=== PATIENT | female | born 1975 | race American Indian/Alaskan Native ===

== ENCOUNTER 2021-04-19 15:02 | Emergency (ER) | payer BC ==
[2021-04-19] MEDS ORDERED: ACETAMINOPHEN 500 MG TAB PO ONE (16:51)
[2021-04-19] MEDS ORDERED: SODIUM CHLORIDE 0.9% 1000 ML 1,000 ML IV ONE (16:51)
--- NOTE | 2021-04-19 16:54 | Event Note ---
Date: 04/19/21 medical screening exam Large left gluteal abscess not low grade fever states not labs, ct, tylenol reassess protecting airway gcs 15 non focal motor exam chaperoned by TRE Conway Vital Signs 04/19/21 16:48 Temperature 100.1 F H Pulse Rate 110 H Respiratory 16 Rate Blood Pressure 146/84 [Left] O2 Sat by Pulse 100 Oximetry
[2021-04-19 17:58] LABS: Basophils % (Auto) 0.2 % (0.0-1.8); Eosinophils # (Auto) 0.1 K/mm3 (0.0-0.4); Eosinophils % (Auto) 0.8 % (0.0-4.3); Hematocrit 42.6 % (30.3-42.9); Hemoglobin 14.2 gm/dl (10.1-14.3); Lymphocytes # (Auto) 0.7 K/mm3 (1.2-5.4); Lymphocytes % (Auto) 6.2 % (13.4-35.0); Mean Corpuscular HGB Conc 33 % (30-34); Mean Corpuscular Volume 96 fl (79-97); Monocytes # (Auto) 0.9 K/mm3 (0.0-0.8); Monocytes % (Auto) 7.4 % (0.0-7.3); Platelet Count 259 K/mm3 (140-440); Red Blood Count 4.44 M/mm3 (3.65-5.03); Red Cell Distribution Width 15.1 % (13.2-15.2)
[2021-04-19 18:07] LABS: BUN/Creatinine Ratio 15; Blood Urea Nitrogen 12 mg/dL (7-17); Hemolysis Index 3
[2021-04-19 18:08] LABS: INR 0.95 (0.87-1.13)
--- NOTE | 2021-04-19 21:05 | Cat Scan Report ---
CT pelvis w con INDICATION / CLINICAL INFORMATION: left gluteal abscess, large. TECHNIQUE: Axial CT images were obtained through the pelvis after IV contrast. All CT scans at this location are performed using CT dose reduction for ALARA by means of automated exposure control. COMPARISON: None available. FINDINGS: There is skin thickening and inflammatory stranding of the left buttock. No soft tissue gas identifie d. 3.2 cm focal area of stranding in the inferior left buttock (series 2 image 115), likely reflectin g phlegmon. No evidence of abscess or other organized collection. No involvement of the perianal soft tissues. Multiple enlarged bilateral inguinal and distal iliac chain lymph nodes are likely reactive. There is no evidence of bowel obstruction or inflammation. Endometrial fluid/thickening is likely physiologic . 2.8 cm right adnexal cyst. No routine further follow-up is required. No suspicious adnexal mass. No significant pelvic free fluid. No intraperitoneal gas or organized collection. No acute osseous find ings. IMPRESSION: 1. Cellulitis of the left buttock with 3.2 cm focal area of stranding in the inferior left buttock, l ikely reflecting phlegmon. No evidence of abscess or organized collection. 2. No other acute abnormality. Other chronic and incidental findings as above. Signer Name: Guevara Moya MD Signed: 04/19/2021 9:01 PM Workstation Name: [id number]
[2021-04-19] MEDS ORDERED: SULFAMETHOXAZOLE/TRIMETHOPRIM 800/160MG DS TAB PO STA (22:07)
[2021-04-19] MEDS ORDERED: cephALEXin 500 MG CAP PO ONE (22:07)
--- NOTE | 2021-04-19 22:11 | Emergency Department Report ---
ED General Adult HPI - General Chief complaint: Skin/Abscess/Foreign Body Stated complaint: CYST PUI?: Yes Time Seen by Provider: 04/19/21 22:03 Source: patient Mode of arrival: Ambulatory Limitations: No Limitations - History of Present Illness Initial comments: During the history and physical examination, I am chaperoned by nurse Jay Conway The patient is a 45-year-old female She states that she is not . She recently moved here from [facility]. She is not known to myself. The patient presents to the ER with a primary complaint of left posterior gluteal cellulitis. This has been present for a few days. The patient states that she is squeezing it. The patient has minimal pus. The patient states this is happened to her in the past. The patient denies other physical pain at this time. She is also asking for refill on her Xanax, escitalopram, and buprenorphine. She is not homicidal suicidal not experiencing hallucinations. -: Gradual, days(s) Location: left, lower extremity (Posterior gluteal cheek) Radiation: non-radiation Severity scale (0 -10): 8 Quality: aching Consistency: constant Improves with: rest Worsens with: movement Associated Symptoms: denies other symptoms - Related Data Previous Rx's Medication Instructions Recorded Last Taken Type Acetaminophen [Non-Aspirin Extra 500 mg PO Q6HR PRN #30 tablet 04/19/21 Unknown Rx Strength] Ibuprofen [Motrin] 600 mg PO Q8H PRN #30 tablet 04/19/21 Unknown Rx Sulfamethoxazole/Trimethoprim 1 each PO BID #14 tablet 04/19/21 Unknown Rx [Bactrim DS TAB] cephALEXin [Keflex] 500 mg PO Q6HR #28 capsule 04/19/21 Unknown Rx Allergies Allergy/AdvReac Type Severity Reaction Status Date / Time No Known Allergies Allergy Unverified 04/19/21 16:51 ED Review of Systems ROS: Stated complaint: CYST Other details as noted in HPI Constitutional: denies: fever Eyes: denies: eye discharge Respiratory: denies: cough Cardiovascular: denies: chest pain Gastrointestinal: denies: abdominal pain Skin: rash, lesions Psychiatric: denies: homicidal thoughts, suicidal thoughts ED Past Medical Hx - Medications Home Medications: Home Medications Medication Instructions Recorded Confirmed Last Taken Type Acetaminophen [Non-Aspirin Extra 500 mg PO Q6HR PRN #30 tablet 04/19/21 Unknown Rx Strength] Ibuprofen [Motrin] 600 mg PO Q8H PRN #30 tablet 04/19/21 Unknown Rx Sulfamethoxazole/Trimethoprim 1 each PO BID #14 tablet 04/19/21 Unknown Rx [Bactrim DS TAB] cephALEXin [Keflex] 500 mg PO Q6HR #28 capsule 04/19/21 Unknown Rx ED Physical Exam - General Limitations: No Limitations General appearance: alert, in no apparent distress - Head Head exam: Present: atraumatic, normocephalic - Eye Eye exam: Present: normal appearance, EOMI. Absent: nystagmus - ENT ENT exam: Present: normal exam, normal orophraynx, mucous membranes moist, normal external ear exam - Neck Neck exam: Present: normal inspection, full ROM. Absent: tenderness, meningismus - Respiratory Respiratory exam: Present: normal lung sounds bilaterally. Absent: respiratory distress, wheezes, rales, rhonchi, stridor, decreased breath sounds - Cardiovascular Cardiovascular Exam: Present: normal rhythm, tachycardia, normal heart sounds. Absent: bradycardia, irregular rhythm, systolic murmur, diastolic murmur, rubs, gallop - GI/Abdominal GI/Abdominal exam: Present: soft. Absent: distended, tenderness, guarding, rebound, rigid, pulsatile mass - Extremities Exam Extremities exam: Present: full ROM, other (2+ pulses noted in bilateral upper and lower extremities. There is no long bony tenderness. On the left posterior medial gluteal cheek, there is a large area of induration, erythema, and tenderness.). Absent: normal inspection, pedal edema, calf tenderness - Back Exam Back exam: Present: normal inspection, full ROM. Absent: tenderness, CVA tenderness (R), CVA tenderness (L), paraspinal tenderness, vertebral tenderness - Neurological Exam Neurological exam: Present: alert, oriented X3, normal gait, other (No facial droop. Tongue midline. Extraocular movements intact bilaterally. Facial sensation intact to light touch in V1, V2, V3 distribution bilaterally. 5 and a 5 strength in 4 extremities. Sensation intact to light touch in 4 extremities.). Absent: motor sensory deficit - Psychiatric Psychiatric exam: Absent: homicidal ideation, suicidal ideation - Skin Skin exam: Present: warm, erythema (There is left inferior medial gluteal erythema) ED Course Vital Signs 04/19/21 04/19/21 04/19/21 16:48 17:59 18:59 Temperature 100.1 F H Pulse Rate 110 H Respiratory 16 18 12 Rate Blood Pressure 146/84 [Left] O2 Sat by Pulse 100 Oximetry 04/19/21 04/19/21 22:12 22:13 Temperature 99.1 F Pulse Rate 100 H Respiratory 12 12 Rate Blood Pressure 142/97 [Left] O2 Sat by Pulse 98 98 Oximetry ED Medical Decision Making - Lab Data Result diagrams: 04/19/21 17:24 04/19/21 17:24 Vital Signs 04/19/21 04/19/21 04/19/21 16:48 17:59 18:59 Temperature 100.1 F H Pulse Rate 110 H Respiratory 16 18 12 Rate Blood Pressure 146/84 [Left] O2 Sat by Pulse 100 Oximetry Lab Results 04/19/21 04/19/21 04/19/21 Range/Units 17:24 17:24 17:24 WBC 11.8 H (4.5-11.0) K/mm3 RBC 4.44 (3.65-5.03) M/mm3 Hgb 14.2 (10.1-14.3) gm/dl Hct 42.6 (30.3-42.9) % MCV 96 (79-97) fl MCH 32 (28-32) pg MCHC 33 (30-34) % RDW 15.1 (13.2-15.2) % Plt Count 259 (140-440) K/mm3 Lymph % (Auto) 6.2 L (13.4-35.0) % [place] % (Auto) 7.4 H (0.0-7.3) % Eos % (Auto) 0.8 (0.0-4.3) % Baso % (Auto) 0.2 (0.0-1.8) % Lymph # (Auto) 0.7 L (1.2-5.4) K/mm3 [place] # (Auto) 0.9 H (0.0-0.8) K/mm3 Eos # (Auto) 0.1 (0.0-0.4) K/mm3 Baso # (Auto) 0.0 (0.0-0.1) K/mm3 Seg Neutrophils % 85.4 H (40.0-70.0) % Seg Neutrophils # 10.0 H (1.8-7.7) K/mm3 PT (12.2-14.9) Sec. INR (0.87-1.13) Sodium 132 L (137-145) mmol/L Potassium 4.3 (3.6-5.0) mmol/L Chloride 96.9 L (98-107) mmol/L Carbon Dioxide 21 L (22-30) mmol/L Anion Gap 18 mmol/L BUN 12 (7-17) mg/dL Creatinine 0.8 (0.6-1.2) mg/dL Estimated GFR > 60 ml/min BUN/Creatinine Ratio 15 % Glucose 98 (65-100) mg/dL Calcium 9.0 (8.4-10.2) mg/dL Total Creatine Kinase 137 H (30-135) units/L HCG, Quant < 2 (0-4) mIU/mL 04/19/21 Range/Units 17:24 WBC (4.5-11.0) K/mm3 RBC (3.65-5.03) M/mm3 Hgb (10.1-14.3) gm/dl Hct (30.3-42.9) % MCV (79-97) fl MCH (28-32) pg MCHC (30-34) % RDW (13.2-15.2) % Plt Count (140-440) K/mm3 Lymph % (Auto) (13.4-35.0) % [place] % (Auto) (0.0-7.3) % Eos % (Auto) (0.0-4.3) % Baso % (Auto) (0.0-1.8) % Lymph # (Auto) (1.2-5.4) K/mm3 [place] # (Auto) (0.0-0.8) K/mm3 Eos # (Auto) (0.0-0.4) K/mm3 Baso # (Auto) (0.0-0.1) K/mm3 Seg Neutrophils % (40.0-70.0) % Seg Neutrophils # (1.8-7.7) K/mm3 PT 13.7 (12.2-14.9) Sec. INR 0.95 (0.87-1.13) Sodium (137-145) mmol/L Potassium (3.6-5.0) mmol/L Chloride (98-107) mmol/L Carbon Dioxide (22-30) mmol/L Anion Gap mmol/L BUN (7-17) mg/dL Creatinine (0.6-1.2) mg/dL Estimated GFR ml/min BUN/Creatinine Ratio % Glucose (65-100) mg/dL Calcium (8.4-10.2) mg/dL Total Creatine Kinase (30-135) units/L HCG, Quant (0-4) mIU/mL - Radiology Data Radiology results: pending, report reviewed, image reviewed CT pelvis w con INDICATION / CLINICAL INFORMATION: left gluteal abscess, large. TECHNIQUE: Axial CT images were obtained through the pelvis after IV contrast. All CT scans at this location are performed using CT dose reduction for ALARA by means of automated exposure control. COMPARISON: None available. FINDINGS: There is skin thickening and inflammatory stranding of the left buttock. No soft tissue gas identified. 3.2 cm focal area of stranding in the inferior left buttock (series 2 image 115), likely reflecting phlegmon. No evidence of abscess or other organized collection. No involvement of the perianal soft tissues. Multiple enlarged bilateral inguinal and distal iliac chain lymph nodes are likely reactive. There is no evidence of bowel obstruction or inflammation. Endometrial fluid/thickening is likely physiologic. 2.8 cm right adnexal cyst. No routine further follow-up is required. No suspicious adnexal mass. No significant pelvic free fluid. No intraperitoneal gas or organized collection. No acute osseous findings. IMPRESSION: 1. Cellulitis of the left buttock with 3.2 cm focal area of stranding in the inferior left buttock, likely reflecting phlegmon. No evidence of abscess or organized collection. 2. No other acute abnormality. Other chronic and incidental findings as above. Signer Name: Guevara Moya MD Signed: 04/19/2021 8:01 PM Workstation Name: [id number] - Medical Decision Making Differential diagnosis, including but not limited to: Abscess, cellulitis, phlegmon Assessment and plan: 45-year-old female, with low-grade temperature and tachycardia with obvious left-sided gluteal cellulitis and induration, CT scan pelvis obtained, and does not demonstrate abscess, only demonstrates phlegmon. Tachycardia improved, heart rate now 99 to 100 bpm. Resting comfortably in stretcher, and in no acute distress. Start Bactrim and Keflex, warm compresses, outpatient follow-up with primary care, or general surgery. Counseled patient that she will need to establish outpatient primary care and/or psychiatric care here, to have her Xanax, escitalopram, and buprenorphine continued. She is awake, alert, and oriented at this time, and does not appear to be demonstrating evidence of withdrawal. Critical care attestation.: If time is entered above; I have spent that time in minutes in the direct care of this critically ill patient, excluding procedure time. ED Disposition Clinical Impression: Cellulitis, gluteal, left, Phlegmon Disposition: HOME / SELF CARE / HOMELESS Is pt being admited?: No Does the pt Need Aspirin: No Condition: Good Instructions: Cellulitis, Adult, [id number] Additional Instructions: Apply warm compresses to the left gluteal cellulitis and phlegmon. Take the pain medication as directed. Take antibiotics as directed. Do not consume alco hol while taking these medications. Strongly recommend that patient not take or press on the left gluteal cellulitis and phlegmon. Do not take them for medication for the next 2 days if patient takes this medication. Follow-up with your primary care doctor or general surgeon in the next 5 to 7 days for repeat checkup and evaluation. Please return to the emergency room right away with new pain, worsened pain, migration of pain, projectile vomiting, change in mental status, confusion, inability tolerate liquid feeds, inability defecate, or any new, worsened or different symptoms not present on the initial emergency room evaluation At this point in time, CT scan of the pelvis did not show any condition that would require draining or incision and drainage. However, the patient may develop an abscess that might require incision and drainage. Therefore, it is very important to follow-up with an outpatient primary care doctor or surgeon, as recommended, to assess for wound progression, and cellulitis/phlegmon progression. It is possible that the patient may require incision and drainage in the future, depending on how she does. The patient will need to follow-up with a primary care doctor or outpatient mental health specialist, to have alprazolam, buprenorphine, and escitalopram continued. Prescriptions: Sulfamethoxazole/Trimethoprim [Bactrim DS TAB] 1 each PO BID #14 tablet cephALEXin [Keflex] 500 mg PO Q6HR #28 capsule Ibuprofen [Motrin] 600 mg PO Q8H PRN #30 tablet PRN Reason: Pain Acetaminophen [Non-Aspirin Extra Strength] 500 mg PO Q6HR PRN #30 tablet PRN Reason: Pain , Severe (7-10) Referrals: AUSTIN SALINAS MD [Staff Physician] - 3-5 Days CHICO WHITE DO [Staff Physician] - 3-5 Days [facility] [Outside] - 3-5 Days [facility] [Outside] - 3-5 Days Forms: Work/School Release Form(ED)
[2021-04-19 22:13] VITALS: BP 142/97
== END 2021-04-19 23:07 | disposition home or self-care (01) ==
LOC: ED 15:02
DX: L03.317 Cellulitis of buttock (principal); L02.31 Cutaneous abscess of buttock; R50.9 Fever, unspecified
CPT/HCPCS: 36415; 72193; 80048; 82550; 84702; 85025; 85610; 99284; J7030; Q9967